=== PATIENT | female | born 1965 | race Caucasian/White ===

== ENCOUNTER 2017-02-17 13:52 | Emergency (ER) | payer MEDICARE ==
--- NOTE | ~2017-02-17 | CT71 ---
[facility] A Service of [facility] RADIOLOGY TEXT RESULTS PATIENT: JENS REARDON LOCATION: SED : 61 UNIT #: [id number] AGE: [address]: Latanya Duncan MD SEX: F ORDER DR: [id number] [address] [address] [id number] E MR#: [id number] Acc #: [id number] NAME: JENS REARDON. : 1965 SEX: F STUDY DATE/TIME: 02/17/2017 14:30 UNIT: SED ROOM: STUDY DESCRIPTION: CT Head Wo Contrast Attending Physician: Latanya Duncan M.D. Ordering Physician: Latanya Duncan M.D. Primary Care Physician: Chyna Jade M.D. MEDICAL IMAGING REPORT This report is preliminary unless electronic signature is present. EXAMINATION Noncontrast CT head. DATE 02/17/2017 HISTORY Headache, memory loss and depression for 1 month. "Feeling funny" in head and neck. Additional history of bipolar disorder, diabetes, anxiety, depression, schizophrenia, high cholesterol. COMPARISON None. TECHNIQUE This CT exam was performed with one or more of the following radiation dose reduction techniques: automatic exposure control, adjustment of mA and/or kV according to patient size, and iterative reconstruction. FINDINGS No acute intracranial hemorrhage, mass lesion, mass effect, midline shift or evidence of acute or evolving infarct. Mild hypodensities are demonstrated within the deep white matter of the brain, consistent with the appearance of chronic microvascular disease. Ventricular configuration is normal. Mild left sphenoid and left ethmoid sinus mucosal thickening. Calvaria is within normal limits. Mastoid air cells are clear. Benign-appearing calcifications are demonstrated within the right parietal scalp region. IMPRESSION Mild chronic microvascular disease changes in the deep white matter of the brain. No acute findings. [facility] A Service of [facility] RADIOLOGY TEXT RESULTS PATIENT: JENS REARDON LOCATION: SED : 61 UNIT #: [id number] AGE: [address]: Latanya Duncan MD SEX: F ORDER DR: Dictated by... Aure Sanford M.D. THIS IS AN ELECTRONICALLY VERIFIED REPORT Aure Sanford M.D. at 02/18/2017 8:54 AM [facility]/fr[place] TD: 02/17/2017 20:26 JOB #: [id number] MEDICAL IMAGING REPORT Page 1 of 1
--- NOTE | ~2017-02-17 | CT52 ---
[facility] A Service of [facility] RADIOLOGY TEXT RESULTS PATIENT: JENS REARDON LOCATION: SED : 61 UNIT #: [id number] AGE: [address]: Latanya Duncan MD SEX: F ORDER DR: [id number] [address] [address] [id number] E MR#: [id number] Acc #: [id number] NAME: JENS REARDON. : 1965 SEX: F STUDY DATE/TIME: 02/17/2017 14:20 UNIT: SED ROOM: STUDY DESCRIPTION: CT Cervical Spine Wo Cont Attending Physician: Latanya Duncan M.D. Ordering Physician: Latanya Duncan M.D. Primary Care Physician: Chyna Jade M.D. MEDICAL IMAGING REPORT This report is preliminary unless electronic signature is present. EXAM CT cervical spine without contrast DATE 02/17/2017 HISTORY 51-year-old female with headache, memory loss and depression for 1 month. "Feeling funny" in head and neck. Additional history of schizophrenia, bipolar disorder, diabetes, depression, anxiety and high cholesterol. COMPARISON None. PROCEDURE 2 mm noncontrast axial images through the cervical spine. Sagittal and coronal reformatted images were obtained. FINDINGS There is 1-2 mm anterolisthesis of C3 upon C4 and proximal 1 mm anterolisthesis of C5 upon C6. Is nonspecific but is thought to be the result of degenerative change. Craniocervical junction is intact. No acute cervical vertebral body fracture is seen. Disc space height appears fairly well maintained. At C2-3, there is moderate right side facet arthropathy, but no significant disc bulge, canal stenosis or foraminal stenosis is seen. At C3-4, there is moderately advanced left side facet arthropathy, but no foraminal stenosis is seen. No disc bulge or canal stenosis is evident. [facility] A Service of [facility] RADIOLOGY TEXT RESULTS PATIENT: JENS REARDON LOCATION: SED : 61 UNIT #: [id number] AGE: [address]: Latanya Duncan MD SEX: F ORDER DR: At C4-5, no disc bulge, canal or foraminal stenosis is evident. Mild left uncovertebral spurring. At C5-6, there is moderately advanced right side facet arthropathy and minimal broad-based posterior disc osteophyte formation. Mild right neural foraminal narrowing. Left neural foramen is patent. There is borderline canal stenosis. At C6-7, no disc bulge, canal or foraminal stenosis or significant facet arthropathy. At C7-T1, no disc bulge, canal or foraminal stenosis is seen. Paraspinal soft tissues appear grossly unremarkable. IMPRESSION 1. No acute cervical spine findings. 2. 1-2 mm anterolisthesis C3 upon C4 and approximately 1 mm anterolisthesis C5 upon C6 thought to be related to the degenerative change and facet arthropathy at those locations. 3. No high-grade canal or foraminal stenosis is seen at any level. There is mild broad-based posterior disc osteophyte formation at C5-6 with borderline to mild canal stenosis. Moderate right C2-3 and left C3-4 facet arthropathy. Dictated by... Aure Sanford M.D. THIS IS AN ELECTRONICALLY VERIFIED REPORT Aure Sanford M.D. at 02/18/2017 8:54 AM [facility]/bridget TD: 02/17/2017 21:03 JOB #: [id number] MEDICAL IMAGING REPORT Page 1 of 1
[~2017-02-17 13:52] MED LIST: ABILIFY30 MG PO; ALBUTEROL MININEB NEB; BACTRIM DS TABL1 TA1 PO; BUPROPION XL300 MG PO; CHOLESTEROL MED; CLONAZEPAM0.5 MG PO; FLUOXETINE HCL40 MG PO; GLUCOTROL PO; INVOKANA300 MG PO; KEFLEX500 M2 PO; LAMICTAL PO; LAMICTAL150 MG PO; LIPITOR40 MG PO; MEDROL PO; METFORMIN HCL1000 M1 PO; METFORMIN PO; NEURONTIN100 MG PO; QUETIAPINE FUM400 MG PO; TOPAMAX PO; TRAZODONE PO; ZITHROMAX PO; [UNRECOGNIZED DRUG - REMARK]
[2017-02-17] MEDS ORDERED: ONE DAILY FOR1 EAC1 PO (14:15)
== END 2017-02-17 15:26 | disposition home or self-care (01) ==
LOC: SED 13:52
DX: F32.9 Major depressive disorder, single episode, unspecified (principal); R51 Headache; E78.5 Hyperlipidemia, unspecified; F41.8 Other specified anxiety disorders; F31.9 Bipolar disorder, unspecified; F20.9 Schizophrenia, unspecified; Z79.899 Other long term (current) drug therapy
CPT/HCPCS: 70450; 72125; 99284